=== PATIENT | male | born 1950 | race Two or more races ===

== ENCOUNTER 2020-10-09 00:20 | Inpatient (IN) | payer OTHER ==
[~2020-10-09] VITALS: Ht 177.8 cm; Wt 114.9 kg
[2020-10-09 01:24] LABS: Basophils # (auto) 0.1 10 ^3/uL (0-0.2); Eosinophils # (auto) 0.4 10 ^3/uL (0-0.8); Eosinophils % (auto) 5.9 % (0.0-7.0); Hemoglobin 11.4 g/dL (13.5-17.5)
[2020-10-09 01:26] LABS: Basophils % (auto) 1.2 % (0.0-2.0); Hematocrit 36.7 % (41.0-53.0); Lymphocytes # (auto) 0.5 10 ^3/uL (0.4-5.4); Lymphocytes % (auto) 7.2 % (10.0-50.0); Mean Corpuscular Hemoglobin 25.5 pg (28.0-32.0); Mean Corpuscular Hgb Conc. 31.2 g/dL (32.0-36.0); Mean Corpuscular Volume 81.8 fL (80.0-100.0); Monocytes # (auto) 0.4 10 ^3/uL (0-1.3); Monocytes % (auto) 5.4 % (0.0-12.0); Neutrophils # (auto) 5.9 10 ^3/uL (1.6-8.6); Neutrophils % (auto) 80.3 % (37.0-80.0); Nucleated Red Blood Cells % 0.3 %; Platelet Count (auto) 209 10^3/uL (140-450); Red Blood Cells 4.49 10^6/uL (4.5-5.90); Red Cell Distribution Width 17.4 % (11.8-14.3); White Blood Cell 7.3 10^3/uL (4.4-10.8)
[2020-10-09 01:40] LABS: Albumin 2.9 g/dL (3.4-5.0); Calcium 7.3 mg/dL (8.5-10.1)
[2020-10-09 01:59] LABS: BUN/Creatinine Ratio 19.5; Bilirubin, Total 0.3 mg/dL (0.2-1.0); Total Protein 6.8 g/dL (6.4-8.2)
[2020-10-09 02:15] LABS: Potassium 5.8 mmol/L (3.5-5.1)
[2020-10-09 02:26] LABS: INR 1.07 (0.9-1.15)
[2020-10-09] MEDS ORDERED: DEXTROSE (50%) 50ML SYRG IV ONE ×2 (05:15→23:30)
[2020-10-09] MEDS ORDERED: SODIUM BICARBONATE 8.4% INJ 50ML SYRINGE IV ONE (05:15)
[2020-10-09] MEDS ORDERED: ALBUTEROL SULF 2.5 MG/0.5ML(0.5%) NEB SOLN NEB ONE (05:15)
[2020-10-09] MEDS ORDERED: InsuLIN REG 1unit/0.01ml Soln (100units/ml) IV ONE ×2 (05:15→23:30)
[2020-10-09] MEDS ORDERED: FUROSEMIDE 20 MG/2 ML VIAL IV ONE (05:15)
[2020-10-09] MEDS ORDERED: SODIUM CHLORIDE 0.9% 1,000 ML IV SCH (16:45)
[2020-10-09] MEDS ORDERED: hydrALAZINE HCL 20 MG/ML VL IV PRN (16:45)
[2020-10-09] MEDS ORDERED: NITROGLYCERIN 0.4 MG SL TAB SL PRN (16:45)
[2020-10-09] MEDS ORDERED: VANCOMYCIN PER PHARMACY 0 MG IV SCH (16:45)
[2020-10-09] MEDS ORDERED: LORazepam 2MG/ML-1ML VIAL IV PRN (16:45)
[2020-10-09] MEDS ORDERED: MORPHINE SULF INJ 2 MG/ML SYRINGE 1ML IV PRN (16:45)
[2020-10-09] MEDS ORDERED: ENOXAPARIN SOD 40 MG/0.4 ML SYRINGE SC SCH (18:00)
[2020-10-09] MEDS ORDERED: VANCOMYCIN 1GM/250ML 250 ML IV ONE (18:00)
[2020-10-09] MEDS ORDERED: TAM04C PO (19:20)
[2020-10-09] MEDS ORDERED: AMLO5TAB15 PO (19:20)
[2020-10-09] MEDS ORDERED: ATOR40TA52 PO (19:20)
[2020-10-09] MEDS ORDERED: GLIP5TAB12 PO (19:20)
[2020-10-09] MEDS ORDERED: LISI-648 PO (19:20)
[2020-10-09] MEDS ORDERED: CLOP75TA28 PO (19:20)
[2020-10-09 20:32] LABS: Blood Alcohol < 3.0 mg/dL (0-5); Magnesium 2.8 mg/dL (1.6-2.6)
[2020-10-09 20:41] LABS: CRP High Sensitivity 2.81 mg/dL (< 0.3)
[2020-10-09] MEDS: ENOXAPARIN SOD 40 MG/0.4 ML SYRINGE SC SCH (20:49)
[2020-10-09] MEDS ORDERED: PIPERACILLIN-TAZOB 2.25GM 50 ML IV SCH (22:00)
[2020-10-09] MEDS ORDERED: SODIUM BICARBONATE 8.4 % INJ 50ML VIAL IV ONE (23:30)
[2020-10-10 08:25] LABS: Basophils # (auto) 0.1 10 ^3/uL (0-0.2); Basophils % (auto) 1.1 % (0.0-2.0); Lymphocytes # (auto) 0.3 10 ^3/uL (0.4-5.4); Monocytes # (auto) 0.4 10 ^3/uL (0-1.3); White Blood Cell 6.3 10^3/uL (4.4-10.8)
[2020-10-10 08:28] LABS: Eosinophils # (auto) 0.2 10 ^3/uL (0-0.8); Eosinophils % (auto) 2.5 % (0.0-7.0); Hematocrit 35.3 % (41.0-53.0); Hemoglobin 11.1 g/dL (13.5-17.5); Lymphocytes % (auto) 5.4 % (10.0-50.0); Mean Corpuscular Hemoglobin 25.8 pg (28.0-32.0); Mean Corpuscular Hgb Conc. 31.4 g/dL (32.0-36.0); Mean Corpuscular Volume 82.1 fL (80.0-100.0); Monocytes % (auto) 5.8 % (0.0-12.0); Neutrophils # (auto) 5.3 10 ^3/uL (1.6-8.6); Neutrophils % (auto) 85.2 % (37.0-80.0); Nucleated Red Blood Cells % 0.1 %; Platelet Count (auto) 177 10^3/uL (140-450); Red Cell Distribution Width 17.2 % (11.8-14.3)
[2020-10-10] MEDS: BUDESONIDE (INHALATION) 0.5 MG/2 ML NEB NEB SCH ×3 (09:04→19:59)
[2020-10-10] MEDS: ALBUTEROL SULF HFA 90MCG INH 200DOSE IN SCH ×3 (09:04→19:59)
[2020-10-10 09:12] LABS: Albumin 2.8 g/dL (3.4-5.0); Calcium 7.5 mg/dL (8.5-10.1)
[2020-10-10 09:15] LABS: BUN/Creatinine Ratio 21.6; Bilirubin, Total 0.3 mg/dL (0.2-1.0); Total Protein 6.6 g/dL (6.4-8.2)
[2020-10-10] MEDS ORDERED: PANTOPRAZOLE 40 MG/10 ML VIAL INJ IV SCH (10:00)
[2020-10-10] MEDS ORDERED: ENOXAPARIN SOD 30 MG/0.3 ML SYRINGE SC SCH (10:00)
[2020-10-10] MEDS: ENOXAPARIN SOD 40 MG/0.4 ML SYRINGE SC SCH (10:00)
[2020-10-10 10:36] LABS: Potassium 5.8 mmol/L (3.5-5.1)
[2020-10-10 11:15] VITALS: BP 128/54
[2020-10-10] MEDS ORDERED: SODIUM BICARBONATE 8.4% INJ 50ML SYRINGE IV ONE (12:45)
[2020-10-10] MEDS ORDERED: FUROSEMIDE 40 MG/4 ML VIAL IV ONE (12:45)
[2020-10-10] MEDS ORDERED: InsuLIN REG 1unit/0.01ml Soln (100units/ml) IV ONE (12:45)
[2020-10-10] MEDS ORDERED: SODIUM ZIRCONIUM CYCL 10 GM PAK PO ONE (12:45)
[2020-10-10] MEDS ORDERED: DEXTROSE (50%) 50ML SYRG IV ONE (12:45)
[2020-10-10] MEDS ORDERED: levoFLOXacin 250MG 50 ML IV ONE (12:45)
[2020-10-10] MEDS ORDERED: ALBUTEROL SULF 2.5 MG/0.5ML(0.5%) NEB SOLN NEB ONE (12:45)
[2020-10-10] MEDS ORDERED: levoFLOXacin 250MG 50 ML IV SCH (12:45)
[2020-10-10] MEDS ORDERED: PIPERACILLIN-TAZOB 2.25GM 50 ML IV SCH (17:00)
[2020-10-10] MEDS ORDERED: VANCOMYCIN 1GM/250ML 250 ML IV ONE (18:00)
[2020-10-10 21:00] LABS: Urine Amorphous Crystal FEW /hpf (None Seen); Urine Bacteria FEW /hpf (None Seen); Urine Blood Negative /uL (Negative); Urine Specific Gravity 1.014 (1.001-1.035); Urine WBC 5 /hpf (0 - 3)
[2020-10-10 21:09] LABS: BUN/Creatinine Ratio 20.7; Calcium 7.3 mg/dL (8.5-10.1); Potassium 5.2 mmol/L (3.5-5.1)
[2020-10-10 23:15] VITALS: BP 128/54
[2020-10-11] MEDS ORDERED: METO-158 PO (03:08)
[2020-10-11] MEDS ORDERED: ESCI10TA53 PO (03:08)
[2020-10-11] MEDS ORDERED: FURO1TAB33 PO (03:15)
[2020-10-11] MEDS: ALBUTEROL SULF HFA 90MCG INH 200DOSE IN SCH ×2 (06:00→10:00)
[2020-10-11 06:01] LABS: Basophils # (auto) 0.1 10 ^3/uL (0-0.2); Eosinophils # (auto) 0.3 10 ^3/uL (0-0.8); Eosinophils % (auto) 4.1 % (0.0-7.0); Lymphocytes # (auto) 0.4 10 ^3/uL (0.4-5.4); Monocytes # (auto) 0.4 10 ^3/uL (0-1.3); White Blood Cell 6.2 10^3/uL (4.4-10.8)
[2020-10-11 06:03] LABS: Basophils % (auto) 1.1 % (0.0-2.0); Hemoglobin 10.4 g/dL (13.5-17.5); Mean Corpuscular Hemoglobin 25.6 pg (28.0-32.0); Mean Corpuscular Hgb Conc. 31.5 g/dL (32.0-36.0); Mean Corpuscular Volume 81.4 fL (80.0-100.0); Monocytes % (auto) 6.2 % (0.0-12.0); Neutrophils # (auto) 5.2 10 ^3/uL (1.6-8.6); Neutrophils % (auto) 82.6 % (37.0-80.0); Nucleated Red Blood Cells % 0.1 %; Platelet Count (auto) 165 10^3/uL (140-450); Red Blood Cells 4.05 10^6/uL (4.5-5.90); Red Cell Distribution Width 17.7 % (11.8-14.3)
[2020-10-11 06:12] VITALS: BP 112/56
[2020-10-11 06:35] LABS: Albumin 2.7 g/dL (3.4-5.0); BUN/Creatinine Ratio 21.9; Bilirubin, Total 0.3 mg/dL (0.2-1.0); Calcium 7.5 mg/dL (8.5-10.1); Total Protein 6.2 g/dL (6.4-8.2)
[2020-10-11 06:56] LABS: Potassium 5.9 mmol/L (3.5-5.1)
[2020-10-11] MEDS ORDERED: DEXTROSE 50% SYRINGE 50 ML IV ONE (07:28)
[2020-10-11] MEDS ORDERED: DEXTROSE (50%) 50ML SYRG IV PRN (07:30)
[2020-10-11 07:41] LABS: Creatinine, Urine 101 mg/dL (30.0-125.0); Sodium Urine 24 mmol/L (40-220)
[2020-10-11] MEDS: BUDESONIDE (INHALATION) 0.5 MG/2 ML NEB NEB SCH (07:50)
[2020-10-11] MEDS: ACCU-CHEK COMFORT CURVE STRIP VI SCH ×5 (08:00→23:35)
[2020-10-11] MEDS ORDERED: SODIUM ZIRCONIUM CYCL 10 GM PAK PO ONE (08:00)
[2020-10-11] MEDS: InsuLIN REG 1unit/0.01ml Soln (100units/ml) SC SCH ×5 (08:52→23:36)
[2020-10-11 09:00] VITALS: BP 119/58
[2020-10-11] MEDS: ENOXAPARIN SOD 40 MG/0.4 ML SYRINGE SC SCH (09:56)
[2020-10-11] MEDS: PANTOPRAZOLE 40 MG TAB PO SCH (09:57)
[2020-10-11] MEDS ORDERED: D5W/SOD CHLO 0.9% 1,000 ML IV SCH (11:45)
[2020-10-11 13:00] VITALS: BP 119/49
[2020-10-11] MEDS: levoFLOXacin 250MG 50 ML IV SCH (13:00)
[2020-10-11 17:00] VITALS: BP 119/58
[2020-10-11] MEDS: SODIUM BICARBONATE 50ML VIAL 150 ML in D5W 5% 1,000 ML IV SCH (18:37)
[2020-10-11] MEDS: FUROSEMIDE 40 MG/4 ML VIAL IV SCH (21:54)
[2020-10-11 22:00] VITALS: BP 123/60
[2020-10-12] MEDS: ACCU-CHEK COMFORT CURVE STRIP VI SCH ×5 (04:00→19:39)
[2020-10-12] MEDS: InsuLIN REG 1unit/0.01ml Soln (100units/ml) SC SCH ×5 (04:00→19:39)
[2020-10-12 05:00] VITALS: BP 135/74
[2020-10-12] MEDS: SODIUM BICARBONATE 50ML VIAL 150 ML in D5W 5% 1,000 ML IV SCH ×2 (05:22→16:49)
[2020-10-12] MEDS: FUROSEMIDE 40 MG/4 ML VIAL IV SCH ×2 (05:47→14:42)
[2020-10-12 06:04] LABS: Basophils # (auto) 0.1 10 ^3/uL (0-0.2); Hematocrit 35.6 % (41.0-53.0); Monocytes # (auto) 0.6 10 ^3/uL (0-1.3)
[2020-10-12 06:06] LABS: Basophils % (auto) 0.8 % (0.0-2.0); Eosinophils # (auto) 0.3 10 ^3/uL (0-0.8); Eosinophils % (auto) 4.9 % (0.0-7.0); Lymphocytes # (auto) 0.3 10 ^3/uL (0.4-5.4); Mean Corpuscular Hgb Conc. 30.9 g/dL (32.0-36.0); Monocytes % (auto) 8.2 % (0.0-12.0); Neutrophils # (auto) 5.6 10 ^3/uL (1.6-8.6); Neutrophils % (auto) 81.1 % (37.0-80.0); Platelet Count (auto) 166 10^3/uL (140-450); Red Cell Distribution Width 17.5 % (11.8-14.3)
[2020-10-12 06:32] LABS: Potassium 5.2 mmol/L (3.5-5.1)
[2020-10-12 06:38] LABS: Albumin 2.8 g/dL (3.4-5.0); BUN/Creatinine Ratio 22.6; Bilirubin, Total 0.4 mg/dL (0.2-1.0); Calcium 7.9 mg/dL (8.5-10.1); Total Protein 6.4 g/dL (6.4-8.2)
[2020-10-12] MEDS: PANTOPRAZOLE 40 MG TAB PO SCH (09:46)
[2020-10-12] MEDS: ENOXAPARIN SOD 40 MG/0.4 ML SYRINGE SC SCH (09:46)
[2020-10-12 17:00] VITALS: BP 136/71
[2020-10-12] MEDS: ATORVASTATIN 20 MG TAB PO SCH (21:29)
[2020-10-12 22:00] VITALS: BP 136/68
[2020-10-12] MEDS ORDERED: ATORVASTATIN 20 MG TAB PO SCH (22:00)
[2020-10-13] MEDS: ACCU-CHEK COMFORT CURVE STRIP VI SCH ×6 (00:15→20:00)
[2020-10-13] MEDS: InsuLIN REG 1unit/0.01ml Soln (100units/ml) SC SCH ×6 (04:00→20:00)
[2020-10-13 05:00] VITALS: BP 151/70
[2020-10-13 05:54] LABS: Basophils # (auto) 0.1 10 ^3/uL (0-0.2); Eosinophils # (auto) 0.6 10 ^3/uL (0-0.8); Mean Corpuscular Hgb Conc. 31.6 g/dL (32.0-36.0); Monocytes # (auto) 0.5 10 ^3/uL (0-1.3); Nucleated Red Blood Cells % 0.1 %; White Blood Cell 6.2 10^3/uL (4.4-10.8)
[2020-10-13 05:56] LABS: Eosinophils % (auto) 9.5 % (0.0-7.0); Hematocrit 34.1 % (41.0-53.0); Hemoglobin 10.8 g/dL (13.5-17.5); Lymphocytes # (auto) 0.4 10 ^3/uL (0.4-5.4); Lymphocytes % (auto) 6.6 % (10.0-50.0); Mean Corpuscular Hemoglobin 25.5 pg (28.0-32.0); Mean Corpuscular Volume 80.7 fL (80.0-100.0); Monocytes % (auto) 8.1 % (0.0-12.0); Neutrophils # (auto) 4.6 10 ^3/uL (1.6-8.6); Neutrophils % (auto) 74.8 % (37.0-80.0); Platelet Count (auto) 135 10^3/uL (140-450); Red Blood Cells 4.22 10^6/uL (4.5-5.90); Red Cell Distribution Width 17.4 % (11.8-14.3)
[2020-10-13 06:06] LABS: Albumin 2.7 g/dL (3.4-5.0); Calcium 8.2 mg/dL (8.5-10.1); Potassium 4.8 mmol/L (3.5-5.1)
[2020-10-13 06:12] LABS: BUN/Creatinine Ratio 21.3; Bilirubin, Total 0.6 mg/dL (0.2-1.0); Total Protein 6.3 g/dL (6.4-8.2)
[2020-10-13 09:00] VITALS: BP 130/59
[2020-10-13] MEDS ORDERED: CLOPIDOGREL BISULFATE 75 MG TAB PO SCH (10:00)
[2020-10-13] MEDS: PANTOPRAZOLE 40 MG TAB PO SCH (10:00)
[2020-10-13] MEDS ORDERED: ASPirin-EC 81 mg tab PO SCH (10:00)
[2020-10-13] MEDS: ENOXAPARIN SOD 40 MG/0.4 ML SYRINGE SC SCH (10:07)
[2020-10-13] MEDS: FUROSEMIDE 40 MG/4 ML VIAL IV SCH (10:07)
[2020-10-13 12:00] VITALS: BP 146/72
[2020-10-13] MEDS: DEXTROSE 10% 1,000 ML IV SCH (12:30)
[2020-10-13] MEDS: levoFLOXacin 250MG 50 ML IV SCH (13:25)
[2020-10-13 17:00] VITALS: BP 140/72
[2020-10-13 22:00] VITALS: BP 122/54
[2020-10-13] MEDS: ATORVASTATIN 20 MG TAB PO SCH (22:00)
[2020-10-13] MEDS: ENOXAPARIN SOD 120 MG/0.8 ML SYRINGE SC SCH (22:00)
[2020-10-14] MEDS: ACCU-CHEK COMFORT CURVE STRIP VI SCH ×7 (04:00→23:39)
[2020-10-14] MEDS: InsuLIN REG 1unit/0.01ml Soln (100units/ml) SC SCH ×6 (04:00→21:31)
[2020-10-14 05:00] VITALS: BP 127/56
[2020-10-14 06:36] LABS: Basophils # (auto) 0.1 10 ^3/uL (0-0.2); Hemoglobin 10.8 g/dL (13.5-17.5); Monocytes # (auto) 0.6 10 ^3/uL (0-1.3); Red Blood Cells 4.31 10^6/uL (4.5-5.90)
[2020-10-14 06:38] LABS: Basophils % (auto) 0.9 % (0.0-2.0); Eosinophils # (auto) 0.7 10 ^3/uL (0-0.8); Eosinophils % (auto) 9.7 % (0.0-7.0); Hematocrit 33.6 % (41.0-53.0); Lymphocytes # (auto) 0.6 10 ^3/uL (0.4-5.4); Lymphocytes % (auto) 8.8 % (10.0-50.0); Mean Corpuscular Volume 78.1 fL (80.0-100.0); Monocytes % (auto) 9.1 % (0.0-12.0); Neutrophils # (auto) 4.8 10 ^3/uL (1.6-8.6); Neutrophils % (auto) 71.5 % (37.0-80.0); Nucleated Red Blood Cells % 0.1 %; Platelet Count (auto) 128 10^3/uL (140-450); Red Cell Distribution Width 16.8 % (11.8-14.3); White Blood Cell 6.7 10^3/uL (4.4-10.8)
[2020-10-14 07:06] LABS: Albumin 2.5 g/dL (3.4-5.0); Calcium 7.8 mg/dL (8.5-10.1); Potassium 5.2 mmol/L (3.5-5.1)
[2020-10-14 07:12] LABS: BUN/Creatinine Ratio 17.6; Bilirubin, Total 0.9 mg/dL (0.2-1.0); Total Protein 6.1 g/dL (6.4-8.2)
[2020-10-14 09:00] VITALS: BP 158/78
[2020-10-14] MEDS ORDERED: metOLazone 5 MG TAB PO ONE (09:45)
[2020-10-14] MEDS: PANTOPRAZOLE 40 MG TAB PO SCH (10:53)
[2020-10-14] MEDS: FUROSEMIDE 40 MG/4 ML VIAL IV SCH (10:54)
[2020-10-14] MEDS: ENOXAPARIN SOD 120 MG/0.8 ML SYRINGE SC SCH ×2 (10:55→22:38)
[2020-10-14] MEDS: DEXTROSE 10% 1,000 ML IV SCH ×3 (10:55→19:00)
[2020-10-14 12:00] VITALS: BP 140/75
[2020-10-14 17:00] VITALS: BP 130/64
[2020-10-14] MEDS: ATORVASTATIN 20 MG TAB PO SCH (22:38)
[2020-10-15] VITALS: BP 146/76
[2020-10-15] MEDS: InsuLIN REG 1unit/0.01ml Soln (100units/ml) SC SCH ×7 (00:10→23:40)
[2020-10-15] MEDS: ACCU-CHEK COMFORT CURVE STRIP VI SCH ×6 (04:00→23:40)
[2020-10-15] MEDS: DEXTROSE 10% 1,000 ML IV SCH ×3 (04:35→23:48)
[2020-10-15 06:55] LABS: Potassium 4.4 mmol/L (3.5-5.1)
[2020-10-15 06:59] LABS: BUN/Creatinine Ratio 15.1
[2020-10-15] MEDS: ENOXAPARIN SOD 120 MG/0.8 ML SYRINGE SC SCH (09:29)
[2020-10-15] MEDS: FUROSEMIDE 40 MG/4 ML VIAL IV SCH (09:29)
[2020-10-15] MEDS: PANTOPRAZOLE 40 MG TAB PO SCH (09:30)
[2020-10-15 16:00] VITALS: BP 137/71
[2020-10-15] MEDS: levoFLOXacin 250MG 50 ML IV SCH (17:30)
[2020-10-15] MEDS: APIXABAN 5 MG TAB PO SCH (21:08)
[2020-10-15] MEDS: ATORVASTATIN 20 MG TAB PO SCH (21:08)
[2020-10-15 22:00] VITALS: BP 146/71
[2020-10-16] MEDS: ACCU-CHEK COMFORT CURVE STRIP VI SCH ×4 (03:39→16:13)
[2020-10-16] MEDS: InsuLIN REG 1unit/0.01ml Soln (100units/ml) SC SCH ×4 (03:40→16:14)
[2020-10-16 08:00] VITALS: BP 113/50
[2020-10-16] MEDS: PANTOPRAZOLE 40 MG TAB PO SCH (09:30)
[2020-10-16] MEDS: APIXABAN 5 MG TAB PO SCH (09:30)
[2020-10-16] MEDS: FUROSEMIDE 40 MG/4 ML VIAL IV SCH (09:30)
[2020-10-16 12:00] VITALS: BP 129/65
[2020-10-16] MEDS: DEXTROSE 10% 1,000 ML IV SCH (12:08)
[2020-10-16 13:03] VITALS: BP 113/50
[2020-10-16 15:58] VITALS: BP 123/68
[2020-10-21] MEDS ORDERED: APIXABAN 5 MG TAB PO SCH (10:00)
== END 2020-10-16 20:56 | disposition home health service (06) | DRG 175 ==
LOC: EDBD 00:20 → ER 00:20 → TELE 00:21 → TELE-CENTR 10-10 22:35
PROVIDERS: ADMIT Family Medicine; ATTEND Family Medicine
DX: I26.99 Other pulmonary embolism without acute cor pulmonale (principal); I50.43 Acute on chronic combined systolic (congestive) and diastolic (congestive) heart failure; J96.01 Acute respiratory failure with hypoxia; J15.9 Unspecified bacterial pneumonia; I13.0 Hypertensive heart and chronic kidney disease with heart failure and stage 1 through stage 4 chronic kidney disease, or unspecified chronic kidney disease; N17.9 Acute kidney failure, unspecified; I69.354 Hemiplegia and hemiparesis following cerebral infarction affecting left non-dominant side; J91.8 Pleural effusion in other conditions classified elsewhere; N18.9 Chronic kidney disease, unspecified; E87.5 Hyperkalemia; E11.65 Type 2 diabetes mellitus with hyperglycemia; E11.22 Type 2 diabetes mellitus with diabetic chronic kidney disease; Z20.822 Contact with and (suspected) exposure to COVID-19; G93.89 Other specified disorders of brain; Z68.39 Body mass index [BMI] 39.0-39.9, adult; Z74.01 Bed confinement status; G47.33 Obstructive sleep apnea (adult) (pediatric); E66.9 Obesity, unspecified; E78.5 Hyperlipidemia, unspecified; F17.200 Nicotine dependence, unspecified, uncomplicated; Z79.02 Long term (current) use of antithrombotics/antiplatelets; E11.649 Type 2 diabetes mellitus with hypoglycemia without coma; E11.40 Type 2 diabetes mellitus with diabetic neuropathy, unspecified; Z79.82 Long term (current) use of aspirin; Z79.899 Other long term (current) drug therapy; Z83.3 Family history of diabetes mellitus
CPT/HCPCS: 36415; 36600; 70450; 71045; 76775; 78582; 80048; 80053; 80202; 80320; 81001; 82570; 82728; 82805; 82962; 83036; 83605; 83735; 83880; 84132; 84300; 84443; 84484; 85025; 85379; 85610; 86141; 87040; 87426; 92610; 93005; 93970; 94640; 96374; 96375; 96376; 97110; 97163; 97530; 99291; G0378; J1815; J2543; J7042

== ENCOUNTER 2021-02-14 13:26 | Emergency (ER) | payer OTHER ==
[~2021-02-14] VITALS: Ht 180.3 cm; Wt 90.7 kg
[~2021-02-14 13:26] MED LIST: AMLO-489 PO; ATOR40TA52 PO; CLOP75TA28 PO; ESCI-28 PO; FURO1TAB33 PO; GLIP5TAB12 PO; LISI-716 PO; METO-158 PO; TAM04C PO
[2021-02-14 14:39] LABS: Basophils # (auto) 0.1 10 ^3/uL (0-0.2); Basophils % (auto) 0.9 % (0.0-2.0); Eosinophils # (auto) 0.3 10 ^3/uL (0-0.8); Lymphocytes # (auto) 0.6 10 ^3/uL (0.4-5.4); Monocytes # (auto) 0.4 10 ^3/uL (0-1.3); Neutrophils # (auto) 7.2 10 ^3/uL (1.6-8.6); White Blood Cell 8.6 10^3/uL (4.4-10.8)
[2021-02-14 14:41] LABS: Eosinophils % (auto) 3.4 % (0.0-7.0); Hematocrit 39.8 % (41.0-53.0); Hemoglobin 12.8 g/dL (13.5-17.5); Lymphocytes % (auto) 6.8 % (10.0-50.0); Mean Corpuscular Hemoglobin 26.2 pg (28.0-32.0); Mean Corpuscular Hgb Conc. 32.3 g/dL (32.0-36.0); Mean Corpuscular Volume 81.1 fL (80.0-100.0); Neutrophils % (auto) 83.9 % (37.0-80.0); Platelet Count (auto) 147 10^3/uL (140-450)
[2021-02-14 15:10] LABS: INR 1.02 (0.9-1.15); Partial Thromboplastin Time 30.9 sec (23.0-31.2)
[2021-02-14 15:18] LABS: Albumin 2.8 g/dL (3.4-5.0); BUN/Creatinine Ratio 13.9; Bilirubin, Total 0.5 mg/dL (0.2-1.0); Calcium 7.6 mg/dL (8.5-10.1); Total Protein 6.7 g/dL (6.4-8.2)
[2021-02-14] MEDS ORDERED: cloNIDine HCL 0.1 MG TAB PO ONE (20:15)
[2021-02-15] MEDS ORDERED: cloNIDine HCL 0.1 MG TAB PO ONE (00:15)
[2021-02-15 01:05] VITALS: BP 120/50
== END 2021-02-15 01:24 | disposition short-term general hospital (02) ==
LOC: ER 13:26 → EDBD 13:26 → ER 02-15 01:18
DX: I11.0 Hypertensive heart disease with heart failure (principal); I50.43 Acute on chronic combined systolic (congestive) and diastolic (congestive) heart failure; R79.1 Abnormal coagulation profile; E11.9 Type 2 diabetes mellitus without complications; E78.5 Hyperlipidemia, unspecified; Z91.19 Patient's noncompliance with other medical treatment and regimen; Z20.822 Contact with and (suspected) exposure to COVID-19
CPT/HCPCS: 36415; 71045; 80053; 82962; 83735; 83880; 84484; 85025; 85379; 85610; 85730; 87426; 93005